=== PATIENT | male | born 1980 | race Caucasian/White ===

== ENCOUNTER 2018-10-14 08:51 | Inpatient (IN) | payer OTHER ==
[~2018-10-14 08:51] MED LIST: CEFAZOLIN 2 GM/50 ML (PMX) 50 ML IVPB
[2018-10-14] MEDS ORDERED: PROPOFOL 20 ML ×2 (09:42→11:50)
[2018-10-14] MEDS ORDERED: SUCCINYLCHOLINE CHLORIDE 100 MG/5 ML SYG IV (09:42)
[2018-10-14] MEDS ORDERED: CEFAZOLIN 1 GM INJ (09:42)
[2018-10-14] MEDS ORDERED: ROCURONIUM 50 MG INJ ×3 (09:42→12:51)
[2018-10-14] MEDS ORDERED: ONDANSETRON 4 MG INJ (09:43)
[2018-10-14] MEDS ORDERED: MIDAZOLAM 1 MG/ML 2 ML INJ (09:43)
[2018-10-14] MEDS ORDERED: DEXAMETHASONE 4 MG/ML 5 ML INJ (09:43)
[2018-10-14] MEDS ORDERED: KETOROLAC 30 MG INJ (09:43)
[2018-10-14] MEDS: LACTATED RINGER'S 1,000 ML IV (09:59)
[2018-10-14] MEDS ORDERED: POLYMYXIN/BACITRACIN 1L IRRIG (11:05)
[2018-10-14] MEDS ORDERED: GELATIN SIZE 100 SPONGE (11:05)
[2018-10-14] MEDS: BUPIVACAINE 0.25%/EPI (SDV) 30 ML INJ (12:06)
[2018-10-14] MEDS: THROMBIN (BOVINE) 5,000 UNIT VIAL TP (12:07)
[2018-10-14] MEDS: SURGIFOAM POWDER 1 GM KIT (12:07)
[2018-10-14] MEDS ORDERED: HYDROmorphONE 1 MG/5 ML IV SYRINGE IV ×2 (12:30)
[2018-10-14] MEDS ORDERED: NEOSTIGMINE 3 MG/3 ML SYRINGE (13:35)
[2018-10-14] MEDS ORDERED: GLYCOPYRROLATE 0.4 MG INJ (13:35)
[2018-10-14] MEDS ORDERED: PROCHLORPERAZINE 10 MG TAB PO (15:30)
[2018-10-14] MEDS ORDERED: ACETAMINOPHEN 325 MG TAB PO (15:30)
[2018-10-14] MEDS ORDERED: HYDROCODONE/APAP (5/325) TAB PO ×2 (15:30)
[2018-10-14] MEDS ORDERED: NACL 0.9% 3 ML SYG IV (15:30)
[2018-10-14] MEDS ORDERED: AL HYDROX/MG HYDROX/SIMETH 30 ML CUP PO (15:30)
[2018-10-14] MEDS ORDERED: NALOXONE (0.4 MG/ML) INJ IV (15:30)
[2018-10-14] MEDS: FENTAnyl 50 MCG/ML VIAL IV ×4 (15:46→16:05)
[2018-10-14] MEDS: ONDANSETRON 4 MG INJ IV ×2 (15:46→21:45)
[2018-10-14] MEDS: ACETAMINOPHEN 1000MG/100ML IV 100 ML IVPB ×2 (15:47→23:41)
[2018-10-14] MEDS: HYDROmorphONE 0.2 MG/ML PCA IV (15:50)
[2018-10-14] MEDS: CEFAZOLIN 1 GM/50 ML (PMX) 50 ML IVPB (17:32)
[2018-10-14] MEDS: SOD CHLORIDE 0.9% 1,000 ML IV (18:17)
[2018-10-14] MEDS ORDERED: HYDROmorphONE 0.5 MG/0.5 ML SYG IV (21:30)
[2018-10-15] MEDS: CEFAZOLIN 1 GM/50 ML (PMX) 50 ML IVPB ×2 (00:33→05:51)
[2018-10-15 05:09] LABS: HEMATOCRIT 37.7 % (42.0-52.0)
[2018-10-15 05:37] LABS: ANION GAP 6 (5-13); BLOOD UREA NITROGEN 10 mg/dl (7-20); CALCIUM 9.3 mg/dl (8.4-10.2); CARBON DIOXIDE 28 mmol/L (21-31); CHLORIDE 105 mmol/L (97-110); CREATININE 0.79 mg/dl (0.61-1.24); Estimated GFR > 60 mL/min (>60); GLUCOSE 126 mg/dl (70-220); POTASSIUM 5.1 mmol/L (3.5-5.1); SODIUM 139 mmol/L (135-144)
[2018-10-15] MEDS: SOD CHLORIDE 0.9% 1,000 ML IV (06:56)
[2018-10-15] MEDS: ACETAMINOPHEN 1000MG/100ML IV 100 ML IVPB (06:56)
[2018-10-15] MEDS: LOSARTAN 50 MG TAB PO (08:31)
[2018-10-15] MEDS: PAROXETINE 10 MG TAB PO (08:31)
[2018-10-15] MEDS: ALLOPURINOL 100 MG TAB PO (08:33)
[2018-10-15] MEDS: DOCUSATE SODIUM 100 MG CAP PO (08:34)
[2018-10-15] MEDS: LIDOCAINE 5% PATCH TD (08:42)
[2018-10-15] MEDS: DEXAMETHASONE 10 MG/ML 1 ML INJ IV (09:54)
== END 2018-10-15 11:07 | disposition home or self-care (01) | DRG 518 ==
LOC: REC 08:51 → MS1 16:36
PROC: 0RR30JZ Replacement of Cervical Vertebral Disc with Synthetic Substitute, Open Approach (ICD-10-PCS; principal; 2018-10-14 11:00)
DX: M50.122 Cervical disc disorder at C5-C6 level with radiculopathy (principal)
CPT/HCPCS: 72050; 80048; 85014; 85018; 97161